=== PATIENT | female | born 1990 | race Hispanic/Latino ===

== ENCOUNTER 2019-03-12 09:27 | Emergency (ER) | payer OTHER | END 2019-03-12 10:03 | disposition home or self-care (01) | LOC: EDH 09:27 | DX: B02.9 Zoster without complications (principal) ==

== ENCOUNTER → 2019-07-02 | Outpatient (CLI) | payer OTHER | END | disposition home or self-care (01) | LOC: RAH 11:07 | PROVIDERS: ATTEND Obstetrics & Gynecology | DX: O20.9 Hemorrhage in early pregnancy, unspecified (principal); Z3A.09 9 weeks gestation of pregnancy; N91.4 Secondary oligomenorrhea | CPT/HCPCS: 76801 ==

== ENCOUNTER → 2019-09-24 | Outpatient (CLI) | payer OTHER | END | disposition home or self-care (01) | LOC: RAH 07:55 | PROVIDERS: ATTEND Obstetrics & Gynecology | DX: Z3A.22 22 weeks gestation of pregnancy (principal) | CPT/HCPCS: 76805 ==

== ENCOUNTER → 2019-11-05 | Outpatient (CLI) | payer OTHER | END | disposition home or self-care (01) ==

== ENCOUNTER → 2019-11-10 | Outpatient (CLI) | payer OTHER ==
[~2019-11-10] MED LIST: PNV1TABL57 PO
== END | disposition home or self-care (01) ==
LOC: LAB 10:22
PROVIDERS: ATTEND Obstetrics & Gynecology
DX: O26.899 Other specified pregnancy related conditions, unspecified trimester (principal); Z3A.00 Weeks of gestation of pregnancy not specified
CPT/HCPCS: 36415; A6260

== ENCOUNTER → 2019-12-28 | Outpatient (CLI) | payer OTHER ==
[2019-12-28 12:24] LABS: BASOPHILS % (AUTO) 0.5 % (0.0-5.0); EOSINOPHILS % (AUTO) 1.6 % (0.0-8.0); HEMATOCRIT 35.5 % (36-48); LYMPHOCYTES % (AUTO) 13.6 % (21.0-51.0); MONOCYTES % (AUTO) 8.6 % (3.0-13.0); NEUTROPHILS % (AUTO) 72.4 % (40.0-77.0); PLATELET COUNT (AUTO) 211 K/uL (130-400); RED CELL DISTRIBUTION WIDTH 14.5 % (11.0-15.5); WHITE BLOOD COUNT (AUTO) 10.1 K/uL (4.8-10.8)
[2019-12-28 12:51] LABS: AMPHET/METH SCREEN,URINE NEGATIVE (NEGATIVE); BARBITURATE SCREEN, URINE NEGATIVE (NEGATIVE); BENZODIAZEPINES SCREEN,URINE NEGATIVE (NEGATIVE); CANNABINOID SCREEN,URINE NEGATIVE (NEGATIVE); COCAINE SCREEN,URINE NEGATIVE (NEGATIVE); OPIATE SCREEN,URINE NEGATIVE (NEGATIVE); PHENCYCLIDINE SCREEN,URINE NEGATIVE (NEGATIVE)
[2019-12-29 10:27] LABS: RAPID PLASMA REAGIN NONREACTIVE (NONREACTIVE)
== END | disposition home or self-care (01) ==
LOC: LAB 11:37
PROVIDERS: ATTEND Obstetrics & Gynecology
DX: Z34.03 Encounter for supervision of normal first pregnancy, third trimester (principal); Z3A.37 37 weeks gestation of pregnancy
CPT/HCPCS: 36415; 80305; 85025; 86592; 86701; 87088; 87390

== ENCOUNTER 2020-01-09 01:44 | Inpatient (IN) | payer OTHER ==
[~2020-01-09] VITALS: Ht 154.9 cm; Wt 62.6 kg
[2020-01-09 02:45] VITALS: BP 121/77
[2020-01-09] MEDS ORDERED: NALOXONE HCL 0.4 MG/1 ML ML IV PRN (03:00)
[2020-01-09] MEDS ORDERED: PROMETHAZINE HCL 25 MG/ML 1ML AMPULE IM PRN (03:00)
[2020-01-09] MEDS ORDERED: ROPIVACAINE 0.2% 100ML VIAL 100 ML EP PRN (03:00)
[2020-01-09] MEDS ORDERED: EPHEDRINE SULFATE 50 MG/ML AMPULE IVP PRN (03:00)
[2020-01-09] MEDS ORDERED: MEPERIDINE-PF 50 MG/ML SYG IVP PRN (03:00)
[2020-01-09] MEDS ORDERED: LACTATED RINGERS 500 ML 500 ML IV PRN (03:00)
[2020-01-09 03:19] LABS: MEAN CORPUSCULAR HEMOGLOBIN 29.8 pg (27.0-33.0); MEAN CORPUSCULAR HGB CONC 32.8 g/dL (32.0-36.0); MEAN CORPUSCULAR VOLUME 90.9 fL (79-99); RED BLOOD CELL COUNT(AUTO) 3.96 MIL/uL (4.00-5.50); RED CELL DISTRIBUTION WIDTH 14.4 % (11.0-15.5); WHITE BLOOD COUNT (AUTO) 11.3 K/uL (4.8-10.8)
[2020-01-09] MEDS: LACTATED RINGERS 1000ML 1,000 ML IV SCH ×2 (03:31→05:47)
[2020-01-09] MEDS ORDERED: OXYTOCIN-LR 20 UNITS/1000 ML 1,000 ML IV ONE (05:43)
[2020-01-09] MEDS ORDERED: OXYTOCIN 10 USP UNITS/ML 20 UNIT in LACTATED RINGERS 1000ML 1,000 ML IV SCH (06:00)
[2020-01-09] MEDS ORDERED: FENTANYL CITRATE PF 50 MCG/1 ML 2ML VIAL ONE (06:07)
[2020-01-09] MEDS ORDERED: ACETAMINOPHEN 325 MG TAB PO PRN (10:30)
[2020-01-09] MEDS ORDERED: MEASLES/MUMPS/RUBELLA VACCINE, LIVE 0.5 ML/VIAL SQ PRN (10:30)
[2020-01-09] MEDS ORDERED: LANOLIN 30GM OINTMENT TP PRN (10:30)
[2020-01-09] MEDS ORDERED: OXYTOCIN-LR 20 UNITS/1000 ML 1,000 ML IV SCH (10:30)
[2020-01-09] MEDS ORDERED: DIPH,PERTUSS(ACELL),TET VAC/PF 0.5 ML VIAL IM PRN (10:30)
[2020-01-09] MEDS ORDERED: WITCH HAZEL 1 PAD TP PRN (10:30)
[2020-01-09] MEDS ORDERED: BENZOCAINE/LANOLIN/ALOE VERA 60 ML AEROSOL TP PRN (10:30)
[2020-01-09] MEDS ORDERED: ACETAMINOPHEN-CODEINE 300/30MG TAB PO PRN (10:30)
[2020-01-09 11:56] VITALS: BP 124/64
[2020-01-09] MEDS: IBUPROFEN 600 MG TABLET PO PRN ×2 (13:57→20:42)
[2020-01-09 16:00] VITALS: BP 118/62
[2020-01-09] MEDS ORDERED: PNV1TABL57 PO (18:23)
[2020-01-09 20:10] VITALS: BP 98/64
[2020-01-09] MEDS: DOCUSATE SODIUM 100 MG CAP PO SCH (20:41)
[2020-01-10 00:10] VITALS: BP 97/48
[2020-01-10 04:00] VITALS: BP 111/69
[2020-01-10 06:43] LABS: HEMATOCRIT 30.1 % (36-48); MEAN CORPUSCULAR HEMOGLOBIN 29.8 pg (27.0-33.0); MEAN CORPUSCULAR HGB CONC 32.2 g/dL (32.0-36.0); MEAN CORPUSCULAR VOLUME 92.3 fL (79-99); RED BLOOD CELL COUNT(AUTO) 3.26 MIL/uL (4.00-5.50); RED CELL DISTRIBUTION WIDTH 14.5 % (11.0-15.5); WHITE BLOOD COUNT (AUTO) 15.3 K/uL (4.8-10.8)
[2020-01-10 07:55] VITALS: BP 95/65
[2020-01-10] MEDS: DOCUSATE SODIUM 100 MG CAP PO SCH (08:55)
[2020-01-10] MEDS: IBUPROFEN 600 MG TABLET PO PRN (08:57)
--- NOTE | 2020-01-10 10:20 | NUR ---
DISCHARGE INSTRUCTIONS GIVEN TO PATIENT AFTER WAS DISCHARGED. PATIENT HAS REMAINED STABLE AND STATES HAVING PAIN RELIEF. DISCHARGE INSTRUCTIONS GIVEN AND SCRIPT FOR MOTRIN PROVIDED. PATIENT VERBALIZED UNDERSTANDING INSTRUCTIONS GIVEN AND NEED TO SCHEDULE FOLLOW UP APPOINTMENT WITH DR. CARDOZA OFFICE.
--- NOTE | 2020-01-10 11:00 | NUR ---
PATIENT WAS TAKEN W/C TO [facility] IN [place] AND WERE DISCHARGED TO HER SPOUSE. PATIENT IS STABLE AND DENIES PAIN.
[2020-01-11 16:10] LABS: HEPATITIS Bs ANTIGEN SCREEN P Negative (Negative)
== END 2020-01-10 11:00 | disposition home or self-care (01) | DRG 806 ==
LOC: EDH 01:44 → LDH 01:45 → OBSVTOIN 01:45 → WSH 12:40
PROVIDERS: ADMIT Obstetrics & Gynecology; ATTEND Obstetrics & Gynecology
PROC: 10E0XZZ Delivery of Products of Conception, External Approach (ICD-10-PCS; principal; 2020-01-09)
PROC: 0UQGXZZ Repair Vagina, External Approach (ICD-10-PCS; 2020-01-09)
PROC: 3E0R3BZ Introduction of Anesthetic Agent into Spinal Canal, Percutaneous Approach (ICD-10-PCS; 2020-01-09)
PROC: 00HU33Z Insertion of Infusion Device into Spinal Canal, Percutaneous Approach (ICD-10-PCS; 2020-01-09)
PROC: 3E0234Z Introduction of Serum, Toxoid and Vaccine into Muscle, Percutaneous Approach (ICD-10-PCS; 2020-01-09)
DX: O42.913 Preterm premature rupture of membranes, unspecified as to length of time between rupture and onset of labor, third trimester (principal); O71.4 Obstetric high vaginal laceration alone; Z37.0 Single live birth; Z3A.36 36 weeks gestation of pregnancy; Z23 Encounter for immunization
CPT/HCPCS: 36415; 85027; 86592; 86850; 86900; 86901; 87340; A4314; G0378; J2590; J2795; J3010; J7120